=== PATIENT | female | born 1995 | race Caucasian/White ===

== ENCOUNTER → 2017-05-01 | Outpatient (CLI) | payer BC ==
[2016-07-15 15:57] VITALS: BP 126/74
[~2017-05-01] MED LIST: HYDR-971 PO; NAPR500T8 PO; PNV1TABL25 PO
--- NOTE | 2017-05-01 16:18 | RAD ---
Obstetrical ultrasound, 05/01/2017: History: Check size and dates Transabdominal scans were obtained. The uterus is enlarged and contains a single gestational sac. It contains a single fetus in a variable orientation. The crown-rump length measures 5.3 cm compatible with a gestational age of 12 weeks. This yields a sonographic EDC of 11/13/2017. activity and heart motion are seen. The heart rate is 171 bpm. The left ovary was not visible. The right ovary contains a 2.4 cm cyst, most likely a corpus luteum cyst. No free fluid is evident in the pelvis. IMPRESSION: 1. Single viable intrauterine fetus of 12 weeks gestational age. 2. Small right ovarian cyst.
== END | disposition home or self-care (01) ==
LOC: US 14:58
PROVIDERS: ATTEND Family Medicine
DX: O26.841 Uterine size-date discrepancy, first trimester (principal); Z3A.12 12 weeks gestation of pregnancy; N83.201 Unspecified ovarian cyst, right side
CPT/HCPCS: 76801

== ENCOUNTER 2017-10-16 15:34 | Observation (INO) | payer OTHER ==
[2016-07-15 15:57] VITALS: BP 126/74
== END 2017-10-16 18:10 | disposition home or self-care (01) ==
LOC: 3 SO LND 15:34
PROVIDERS: ADMIT Family Medicine; ATTEND Family Medicine
DX: O62.9 Abnormality of forces of labor, unspecified (principal); Z3A.36 36 weeks gestation of pregnancy
CPT/HCPCS: G0378; G0379

== ENCOUNTER 2017-10-22 21:56 | Observation (INO) | payer OTHER ==
[2017-10-22] MEDS: IV RINGERS,LACTATED 1000ML 1,000 ML IV (22:00)
[2017-10-22 22:25] LABS: BILIRUBIN,URINE NEGATIVE (NEG); CLARITY,URINE CLEAR; COLOR,URINE YELLOW; GLUCOSE,URINE NEGATIVE (NEG); NITRITE,URINE NEGATIVE (NEG); PROTEIN,URINE NEGATIVE (NEG-TRACE); UROBILINOGEN,URINE 0.2 mg/dL (0.2 mg/dL)
[2017-10-22 22:30] LABS: BACTERIA,URINE MODERATE /HPF (0-FEW); RBC,URINE RARE /HPF (0-2); SQUAMOUS EPITHELIAL CELL,UR MOD /LPF
[2017-10-22 22:32] LABS: AMPHETAMINE/METHAMPHETAMINE NEG (NEG); BARBITURATES NEG (NEG); BENZODIAZEPINES NEG (NEG); CANNABINOIDS POS (NEG); COCAINE NEG (NEG); ETHANOL, URINE NEG (NEG); METHADONE NEG (NEG); OPIATES NEG (NEG); PHENCYCLIDINE NEG (NEG)
== END 2017-10-22 23:02 | disposition home or self-care (01) ==
LOC: 3 SO LND 21:56
DX: O26.893 Other specified pregnancy related conditions, third trimester (principal); M54.9 Dorsalgia, unspecified; M25.519 Pain in unspecified shoulder; R05 Cough; Z3A.37 37 weeks gestation of pregnancy
CPT/HCPCS: 80307; 81001; 87086; G0378; G0379